=== PATIENT | female | born 1950 | race Caucasian/White ===

== ENCOUNTER 2024-04-23 10:06 | Outpatient (CLI) | payer MEDICARE, SELFPAY ==
--- NOTE | ~2024-04-23 | US_ITS ---
EXAMINATION: US venous doppler [facility] DATE: 04/23/2024 10:51 INDICATION: Left lower limb pain TECHNIQUE: Grayscale ultrasound images without and with compression and Doppler ultrasound images of the left lower extremity veins were obtained. COMPARISON: None. FINDINGS: Noncompressible occlusive appearing thrombus in the left popliteal vein, peroneal veins, posterior ti bial veins soleal vein. The visualized portions of left common femoral vein, profunda (deep) femoral vein, femoral vein, gastrocnemius vein and greater saphenous vein outflow are patent. IMPRESSION: 1. [id number] deep venous thrombosis beginning in the left popliteal vein posterior tibial, carlos carey and soleal veins at the calf. Reviewed, dictated and finalized at location A. IMPRESSION: 1. [id number] deep venous thrombosis beginning in the left popliteal vein posterior tibial, peroneal and soleal veins at the calf.
== END 2024-04-23 10:07 | disposition home or self-care (01) ==
LOC: CHSIMG 10:15
DX: M79.605 Pain in left leg (principal); I82.432 Acute embolism and thrombosis of left popliteal vein; I82.442 Acute embolism and thrombosis of left tibial vein; I82.452 Acute embolism and thrombosis of left peroneal vein; I82.462 Acute embolism and thrombosis of left calf muscular vein
CPT/HCPCS: 93971